=== PATIENT | male | born 1975 | race Caucasian/White ===

== ENCOUNTER 2019-03-04 09:55 | Emergency (ER) | payer SELFPAY ==
[2019-03-04 10:01] VITALS: BP 131/74; PULSE 70; RESP 14; TEMP 36.6; O2SAT 98
--- NOTE | 2019-03-04 10:04 | DI.RAD.S_ITS ---
PROCEDURE: XR CHEST 1V INDICATIONS: chest pain TECHNIQUE: One view of the chest was acquired. COMPARISON: [facility], CHEST 2 VIEW, 02/16/2009, 15:28. [facility], CHEST 1 VIEW, 10/04/2010, 14:10. FINDINGS: Surgical changes and devices: None. Lungs and pleura: Lungs are clear. No pleural effusions or pneumothorax. Mediastinum: Mediastinal contours appear normal. Heart size is normal. Bones and chest wall: No suspicious bony lesions. Overlying soft tissues appear unremarkable. IMPRESSION: Portable chest within normal limits. Dictated by: Dada Felder M.D. on 03/04/2019 at 9:51 Approved by: Dada Felder M.D. on 03/04/2019 at 9:51
--- NOTE | 2019-03-04 10:22 | PC.NURSE ---
Addendum entered by Jelani Prado R.N. 03/04/19 10:24: States is here to start ball rolling for seeing a tankroom tender for the event he had in January. [facility] insurance worries Original Note: Pt refuses IV start and would like lab draw instead of IV as not having chest pain at this time
[2019-03-04] MEDS: ASPIRIN 81 MG CHEW TAB 324 MG PO (10:28)
[2019-03-04 10:30] VITALS: BP 106/63; PULSE 64; RESP 12; O2SAT 99
[2019-03-04 10:43] LABS: Add Manual Diff / Slide Review NO; Basophils Absolute Auto 0 /uL (0-100); Basophils Percent Auto 0.4 % (0-2); Eosinophils Absolute Auto 100 /uL (0-450); Hematocrit 48.7 % (41-53); Hemoglobin 17.2 g/dL (13.5-17.5); Lymphocytes Absolute Auto 1900 /uL (1100-4500); Lymphocytes Percent Auto 27.4 % (25-40); Mean Corpuscular HGB Conc 35.4 % (30-36); Mean Corpuscular Hemoglobin 32.5 PG (26-34); Mean Corpuscular Volume 91.8 fL (80-100); Monocytes Absolute Auto 400 /uL (0-900); Monocytes Percent Auto 5.9 % (3-14); Neutrophils Absolute Auto 4500 /uL (1500-7000); Neutrophils Percent Auto 65.3 % (50-75); Platelet Count 179 X10^3/uL (150-400); Red Cell Distribution Width 13.6 % (11.6-14.8); White Blood Cell Count 6.9 X10^3/uL (4.5-11.0)
[2019-03-04 10:50] LABS: INR 0.9 (0.9-1.3); Prothrombin Time 10.7 SECONDS (10.1-12.7)
--- NOTE | 2019-03-04 10:51 | ED.CHESTPAIN ---
HPI - Chest Pain General Chief Complaint: Chest Pain Stated Complaint: heart attack last month Time Seen by Provider: 03/04/19 10:50 Source: patient Mode of arrival: ambulatory Limitations: no limitations History of Present Illness HPI narrative: 44-year-old male comes emergency department with complaint of an episode of chest pain that happened twice in January. Patient states the 1st 1 was pretty mild a couple days later had a more intense feeling that felt like he was being kicked in the chest, and then felt like a snake was wrapped around his chest and felt very tight. He states that episode was much more intense than sort of took him down to his knees he states that intensity clements last about 6 or 7 minutes but took about 30 minutes to totally resolved. He did feel sweaty in both episodes, he did appreciate any shortness of breath. No nausea no vomiting. Patient states that he has not had any more symptoms since. Both times he was Um active the 1st time he was on a ladder helping with moving and cleaning a house. Patient does smoke, he drinks alcohol but states not regularly but he does binge drink and will drink to excess every couple weeks to months. Denies any illicit. He states he does have diabetes. He used to be taking metformin that he obtain from another person and was helping to control his sugars but he stopped secondary to side effects. He has been told that his cholesterol is high. States he has a strong family history with his mom having heart issues in her 40s as well as uncles who had heart attacks in their 20s and older and a grandfather. Patient was seen in 1 of primary care office is yesterday. They wanted to refer to cardiology or told to come to the emergency department and they felt that he needed stress testing. He has not had any further symptoms since then. Related Data Home Medications Medication Instructions Recorded Confirmed Fish Oil 3,000 - 4,000 unit PO DAILY 03/04/19 03/04/19 aspirin 325 mg PO BID 03/04/19 03/04/19 Previous Rx's Medication Instructions Recorded metformin 250 mg PO BID #30 tab 03/04/19 Allergies Allergy/AdvReac Type Severity Reaction Status Date / Time No Known Drug Allergies Allergy Verified 03/04/19 10:04 Review of Systems Review of Systems ROS Unobtainable: All systems reviewed & are unremarkable except as noted in HPI and below Cardiovascular Reports chest pain, Reports chest pain with activity, Reports diaphoresis, Denies syncope, Denies rapid heart rate, Denies edema, Denies irregular heart rhythm, Denies lightheadedness, Denies palpitations, Denies dyspnea, Denies dyspnea on exertion and Denies orthopnea Respiratory Denies change in phlegm color, Denies chest congestion, Denies cough, Denies hemoptysis, Denies dyspnea, Denies dyspnea on exertion and Denies wheezing Gastrointestinal Gastrointestinal: Denies abdominal pain, Denies change in bowel habits, Denies diarrhea, Denies nausea and Denies vomiting Genitourinary Denies hematuria, Denies dysuria, Denies flank pain and Denies urinary urgency Musculoskeletal Denies back pain Neurologic Denies syncope Endocrine Denies palpitations Allergic/Immunologic Denies wheezing [facility] Medical History (Updated 03/04/19 @ 12:02 by Jazmin Mancia DO) Diabetes (Chronic) Dyslipidemia (Chronic) Social History Smoking Status: Current every day smoker Social History (Updated 03/04/19 @ 11:10 by Jazmin Mancia DO) Smoking Status: Current every day smoker alcohol intake: current substance use type: does not use Exam Narrative Exam Narrative: GENERAL: Alert and oriented x three, moderately obese male in no acute distress. HEENT: Head normocephalic, atraumatic, EOMI, pupils reactive, face symmetric, moist mucous membranes NECK: Supple, full range of motion CARDIOVASCULAR: Regular rate and rhythm without murmurs, rubs or gallops. RESPIRATORY: Breath sounds equal bilaterally, no wheezes rales or rhonchi. ABDOMEN: Soft, nontender. Normoactive bowel sounds all 4 quadrants. No guarding or rebound, rigidity, no mass, no bruit or pulsatile mass. : No CVA tenderness EXTREMITIES: Normal range of motion, no clubbing or edema. Neurovascularly intact. . NEUROLOGICAL: Cranial nerves II through XII grossly intact. Moving all extremities SKIN: Warm, dry, no petechiae, no rashes or lesions. Initial Vital Signs Initial Vital Signs: Vital Signs Temperature 97.8 F 03/04/19 10:01 Pulse Rate 70 03/04/19 10:01 Respiratory Rate 14 03/04/19 10:01 Blood Pressure 131/74 03/04/19 10:01 Pulse Oximetry 98 03/04/19 10:01 Scores HEART Score Heart Score history: Highly Suspicious Heart Score EKG: Normal Heart Score Age: 45-64 years old Heart Score risk factors: > 3 risk factors or hx of atherosclerotic disease Heart Score troponin: < or = to normal limit Heart Score Total: 5 Course Orders Ordered: ED Orders 03/04/19 10:04 XR chest 1V Stat BNP [B Type Natriuretic Peptide] Stat Complete Blood Count AUTO DIFF Stat EKG-12 Lead Stat 03/04/19 10:35 Comprehensive Metabolic Panel Stat Lipase Stat Magnesium Stat Partial Thromboplastin Time Stat Prothrombin Time INR Stat Troponin & CK Cardiac Panel Stat Discontinued Medications Aspirin (Aspirin Chew) 324 mg PO NOW ONE Stop: 03/04/19 10:05 Last Admin: 03/04/19 10:28 Dose: 324 mg Vital Signs - 8 hr 03/04/19 10:01 03/04/19 10:30 03/04/19 12:07 Temperature 97.8 F Pulse Rate 70 64 57 L Respiratory Rate 14 12 16 Blood Pressure 131/74 Blood Pressure [Right Arm] 106/63 105/69 Pulse Oximetry 98 99 97 03/04/19 12:31 Temperature Pulse Rate 58 L Respiratory Rate 13 Blood Pressure 105/69 Blood Pressure [Right Arm] Pulse Oximetry 98 MDM - Chest Pain Lab Data Attestation: I reviewed the patient's lab results. Result diagrams: 03/04/19 10:04 03/04/19 10:35 Lab Results 03/04/19 03/04/19 03/04/19 Range/Units 10:04 10:35 10:35 WBC 6.9 (4.5-11.0) X10^3/uL RBC 5.30 (4.5-5.9) X10^6/uL Hgb 17.2 (13.5-17.5) g/dL Hct 48.7 (41-53) % MCV 91.8 (80-100) fL MCH 32.5 (26-34) PG MCHC 35.4 (30-36) % RDW 13.6 (11.6-14.8) % Plt Count 179 (150-400) X10^3/uL Neut % (Auto) 65.3 (50-75) % Lymph % (Auto) 27.4 (25-40) % [place] % (Auto) 5.9 (3-14) % Eos % (Auto) 1.0 L (2-4) % Baso % (Auto) 0.4 (0-2) % Neut # (Auto) 4500 (0214-4878) /uL Lymph # (Auto) 1900 (7591-9763) /uL [place] # (Auto) 400 (0-900) /uL Eos # (Auto) 100 (0-450) /uL Baso # (Auto) 0 (0-100) /uL PT 10.7 (10.1-12.7) SECONDS INR 0.9 (0.9-1.3) APTT 32 (26.4-36.2) SECONDS Sodium 138 (137-145) mmol/L Potassium 4.5 (3.4-5.1) mmol/L Chloride 104 (98-107) mmol/L Carbon Dioxide 24 (22-32) mmol/L BUN 15 (9-20) mg/dL Creatinine 0.70 (0.66-1.25) mg/dL Estimated GFR > 60.0 (>60) mL/min BUN/Creatinine Ratio 21.4 (6-22) Glucose 176 H (70-100) mg/dL Calcium 9.5 (8.4-10.2) mg/dL Magnesium 1.7 (1.6-2.3) mg/dL Total Bilirubin 0.6 (0.2-1.3) mg/dL AST 19 (17-59) IU/L ALT 32 (21-72) IU/L Alkaline Phosphatase 65 (38-126) U/L Total Creatine Kinase 50 L (55-170) U/L CK-MB (CK-2) TNP CK-MB (CK-2) Rel Index TNP Troponin I < 0.012 (0.01-0.034) ng/mL B-Natriuretic Peptide < 100 (<100) Total Protein 7.1 (6.3-8.2) g/dL Albumin 4.1 (3.5-5.0) g/dL Globulin 3.0 (1.7-4.1) g/dL Albumin/Globulin Ratio 1.4 (1.0-2.8) Lipase 93 (23-300) U/L Imaging Data Chest x-ray: Radiologist's impression: [address] [address] XRay Report Signed Patient: Michi HernandezMagi#: [id number] : 1975Acct:[id number] Age/Sex: 44 / MDate of Service: 03/04/19 Loc: ED Accession Number: [id number] Procedure: XR chest 1V Ordering Provider: Jazmin Mancia D.O. PROCEDURE: XR CHEST 1V INDICATIONS: chest pain TECHNIQUE: One view of the chest was acquired. COMPARISON: [facility], , CHEST 2 VIEW, 02/16/2009, 15:28. [facility], CHEST 1 VIEW, 10/04/2010, 14:10. FINDINGS: Surgical changes and devices: None. Lungs and pleura: Lungs are clear. No pleural effusions or pneumothorax. Mediastinum: Mediastinal contours appear normal. Heart size is normal. Bones and chest wall: No suspicious bony lesions. Overlying soft tissues appear unremarkable. IMPRESSION: Portable chest within normal limits. Dictated by: Dada Felder M.D. on 03/04/2019 at 9:51 Approved by: Dada Felder M.D. on 03/04/2019 at 9:51 ECG Data Attestation: I personally reviewed and interpreted this ECG as follows: Interpretation: Sinus rhythm rate of 65 [place] 160 QRS 89 QTC 383. Normal EKG. MDM Narrative Medical decision making narrative: Patient's EKG does not show any acute changes his last episode of symptoms was month ago. He does have risk factors and has concerning story for angina and would likely benefit from stress testing. He is currently not insured and getting outpatient follow-up would be quite difficult. I spoke with Cardiology and Dr. Davis who had already been consulted by the primary care team and they are willing to see patient for evaluation and stress testing. Discussed with patient I would be willing to keep for stress testing, he does not wish to stay. He has not had symptoms for 1 month and feel it is appropriate for outpatient follow up. He does have risk factors and recommended daily aspirin, statin as well as treatment of his diabetes. I spoke with Dr. Malone which feels this would be helpful. Patient knows that smoking cessation is in his best interest and was counseled. Patient has left over lipitor at home. I spoke with Alysia Bear to faciliate follow up also if there are any barriers to seeing cardiology. She would also be willing to order stress testing and follow the patient. She recommends trying metformin 250mg BID as he did not tolerate 500mg BID prior. Dr. Davis had recommended Beta Max but patient is bradycardic in 50-60's range with systolic BP in 100 range and I would not start at this time. Patient has started taking 324 mg aspirin twice daily told he could take it once daily. He started taking fish oil. He is currently not taking any medications for his cholesterol or diabetes. Patient is at bedside, he has also been contacted by patient care to help him get insurance. Discharge Plan Departure Patient Disposition: Home Clinical Impression: Chest pain Discharge Date/Time: 03/04/19 12:32 Interventions: ED Discharge Assessment Last Done: 03/04/19 12:31 Instructions: DI for Chest Pain Activity Restrictions/Additional Instructions: Follow-up with cardiology in the next week for stress testing call for an appointment. I did speak with Dr. Malone and he recommends that you have stress testing. Contact information is inluded below. You may also discuss with the primary care team and they can also order stress testing. Take aspirin 324mg once daily. Take lipitor 40mg once daily, take at night before bed. Start metformin 250mg or 1/2 tablet twice daily and see if you tolerate that better. Return to the emergency department for recurrent symptoms, new chest pain, shortness of breath, diaphoresis or sweating, persistent nausea or vomiting new weakness, passing out, swelling your extremities or other new or concerning symptoms. Prescriptions: New metformin 500 mg tablet 250 mg PO BID Qty: 30 RF: 0 No Action aspirin 325 mg Tablet 325 mg PO BID RF: 0 Fish Oil 3,000 - 4,000 unit PO DAILY RF: 0 Referrals: Alysia Bear ARNP [Non-Staff] - Boogie Malone MD [Physician] -
[2019-03-04 10:52] LABS: PTT Partial Thromboplastin Tim 32 SECONDS (26.4-36.2)
[2019-03-04 10:55] LABS: HEMOLYSIS < 15 (0-50); Potassium 4.5 mmol/L (3.4-5.1)
--- NOTE | 2019-03-04 10:55 | PC.NURSE ---
Pt concerned because he has no insurance. Called Financial / Pt accounts and spoke w/ Lauren. She will be down to see pt.
[2019-03-04 10:58] LABS: Alanine Aminotransferase 32 IU/L (21-72); Albumin 4.1 g/dL (3.5-5.0); Albumin Globulin Ratio 1.4 (1.0-2.8); Alkaline Phosphatase 65 U/L (38-126); Aspartate Aminotransferase 19 IU/L (17-59); BUN Creatinine Ratio 21.4 (6-22); Bilirubin Total 0.6 mg/dL (0.2-1.3); Blood Urea Nitrogen 15 mg/dL (9-20); Calcium 9.5 mg/dL (8.4-10.2); Carbon Dioxide 24 mmol/L (22-32); Chloride 104 mmol/L (98-107); Creatine Kinase 50 U/L (55-170); Estimated Glomerular Filt Rate > 60.0 mL/min (>60); Glucose 176 mg/dL (70-100); Lipase 93 U/L (23-300); Magnesium 1.7 mg/dL (1.6-2.3); Sodium 138 mmol/L (137-145); Total Protein 7.1 g/dL (6.3-8.2)
[2019-03-04 11:10] LABS: Troponin I < 0.012 ng/mL (0.01-0.034)
--- NOTE | 2019-03-04 11:13 | ED_ITS ---
HPI - Chest Pain General Chief Complaint: Chest Pain Stated Complaint: heart attack last month Time Seen by Provider: 03/04/19 10:50 Source: patient Mode of arrival: ambulatory Limitations: no limitations History of Present Illness HPI narrative: 44-year-old male comes emergency department with complaint of an episode of chest pain that happened twice in January. Patient states the 1st 1 was pretty mild a couple days later had a more intense feeling that felt like he was being kicked in the chest, and then felt like a snake was wrapped around his chest and felt very tight. He states that episode was much more intense than sort of took him down to his knees he states that intensity clements last about 6 or 7 minutes but took about 30 minutes to totally resolved. He did feel sweaty in both episodes, he did appreciate any shortness of breath. No nausea no vomiting. Patient states that he has not had any more symptoms since. Both times he was Um active the 1st time he was on a ladder helping with moving and cleaning a house. Patient does smoke, he drinks alcohol but states not regularly but he does binge drink and will drink to excess every couple weeks to months. Denies any illicit. He states he does have diabetes. He used to be taking metformin that he obtain from another person and was helping to control his sugars but he stopped secondary to side effects. He has been told that his cholesterol is high. States he has a strong family history with his mom having heart issues in her 40s as well as uncles who had heart attacks in their 20s and older and a grandfather. Patient was seen in 1 of primary care office is yesterday. They wanted to refer to cardiology or told to come to the emergency department and they felt that he needed stress testing. He has not had any further symptoms since then. Related Data Home Medications Medication Instructions Recorded Confirmed Fish Oil 3,000 - 4,000 unit PO DAILY 03/04/19 03/04/19 aspirin 325 mg PO BID 03/04/19 03/04/19 Previous Rx's Medication Instructions Recorded metformin 250 mg PO BID #30 tab 03/04/19 Allergies Allergy/AdvReac Type Severity Reaction Status Date / Time No Known Drug Allergies Allergy Verified 03/04/19 10:04 Review of Systems Review of Systems ROS Unobtainable: All systems reviewed & are unremarkable except as noted in HPI and below Cardiovascular Reports chest pain, Reports chest pain with activity, Reports diaphoresis, Denies syncope, Denies rapid heart rate, Denies edema, Denies irregular heart rhythm, Denies lightheadedness, Denies palpitations, Denies dyspnea, Denies dyspnea on exertion and Denies orthopnea Respiratory Denies change in phlegm color, Denies chest congestion, Denies cough, Denies hemoptysis, Denies dyspnea, Denies dyspnea on exertion and Denies wheezing Gastrointestinal Gastrointestinal: Denies abdominal pain, Denies change in bowel habits, Denies diarrhea, Denies nausea and Denies vomiting Genitourinary Denies hematuria, Denies dysuria, Denies flank pain and Denies urinary urgency Musculoskeletal Denies back pain Neurologic Denies syncope Endocrine Denies palpitations Allergic/Immunologic Denies wheezing [facility] Medical History (Updated 03/04/19 @ 12:02 by Jazmin Mancia DO) Diabetes (Chronic) Dyslipidemia (Chronic) Social History Smoking Status: Current every day smoker Social History (Updated 03/04/19 @ 11:10 by Jazmin Mancia DO) Smoking Status: Current every day smoker alcohol intake: current substance use type: does not use Exam Narrative Exam Narrative: GENERAL: Alert and oriented x three, moderately obese male in no acute distress. HEENT: Head normocephalic, atraumatic, EOMI, pupils reactive, face symmetric, moist mucous membranes NECK: Supple, full range of motion CARDIOVASCULAR: Regular rate and rhythm without murmurs, rubs or gallops. RESPIRATORY: Breath sounds equal bilaterally, no wheezes rales or rhonchi. ABDOMEN: Soft, nontender. Normoactive bowel sounds all 4 quadrants. No guarding or rebound, rigidity, no mass, no bruit or pulsatile mass. : No CVA tenderness EXTREMITIES: Normal range of motion, no clubbing or edema. Neurovascularly intact. . NEUROLOGICAL: Cranial nerves II through XII grossly intact. Moving all extremities SKIN: Warm, dry, no petechiae, no rashes or lesions. Initial Vital Signs Initial Vital Signs: Vital Signs Temperature 97.8 F 03/04/19 10:01 Pulse Rate 70 03/04/19 10:01 Respiratory Rate 14 03/04/19 10:01 Blood Pressure 131/74 03/04/19 10:01 Pulse Oximetry 98 03/04/19 10:01 Scores HEART Score Heart Score history: Highly Suspicious Heart Score EKG: Normal Heart Score Age: 45-64 years old Heart Score risk factors: > 3 risk factors or hx of atherosclerotic disease Heart Score troponin: < or = to normal limit Heart Score Total: 5 Course Orders Ordered: ED Orders 03/04/19 10:04 XR chest 1V Stat BNP [B Type Natriuretic Peptide] Stat Complete Blood Count AUTO DIFF Stat EKG-12 Lead Stat 03/04/19 10:35 Comprehensive Metabolic Panel Stat Lipase Stat Magnesium Stat Partial Thromboplastin Time Stat Prothrombin Time INR Stat Troponin & CK Cardiac Panel Stat Discontinued Medications Aspirin (Aspirin Chew) 324 mg PO NOW ONE Stop: 03/04/19 10:05 Last Admin: 03/04/19 10:28 Dose: 324 mg Vital Signs - 8 hr 03/04/19 10:01 03/04/19 10:30 03/04/19 12:07 Temperature 97.8 F Pulse Rate 70 64 57 L Respiratory Rate 14 12 16 Blood Pressure 131/74 Blood Pressure [Right Arm] 106/63 105/69 Pulse Oximetry 98 99 97 03/04/19 12:31 Temperature Pulse Rate 58 L Respiratory Rate 13 Blood Pressure 105/69 Blood Pressure [Right Arm] Pulse Oximetry 98 MDM - Chest Pain Lab Data Attestation: I reviewed the patient's lab results. Result diagrams: 03/04/19 10:04 03/04/19 10:35 Lab Results 03/04/19 03/04/19 03/04/19 Range/Units 10:04 10:35 10:35 WBC 6.9 (4.5-11.0) X10^3/uL RBC 5.30 (4.5-5.9) X10^6/uL Hgb 17.2 (13.5-17.5) g/dL Hct 48.7 (41-53) % MCV 91.8 (80-100) fL MCH 32.5 (26-34) PG MCHC 35.4 (30-36) % RDW 13.6 (11.6-14.8) % Plt Count 179 (150-400) X10^3/uL Neut % (Auto) 65.3 (50-75) % Lymph % (Auto) 27.4 (25-40) % [place] % (Auto) 5.9 (3-14) % Eos % (Auto) 1.0 L (2-4) % Baso % (Auto) 0.4 (0-2) % Neut # (Auto) 4500 (1811-3019) /uL Lymph # (Auto) 1900 (6232-6219) /uL [place] # (Auto) 400 (0-900) /uL Eos # (Auto) 100 (0-450) /uL Baso # (Auto) 0 (0-100) /uL PT 10.7 (10.1-12.7) SECONDS INR 0.9 (0.9-1.3) APTT 32 (26.4-36.2) SECONDS Sodium 138 (137-145) mmol/L Potassium 4.5 (3.4-5.1) mmol/L Chloride 104 (98-107) mmol/L Carbon Dioxide 24 (22-32) mmol/L BUN 15 (9-20) mg/dL Creatinine 0.70 (0.66-1.25) mg/dL Estimated GFR > 60.0 (>60) mL/min BUN/Creatinine Ratio 21.4 (6-22) Glucose 176 H (70-100) mg/dL Calcium 9.5 (8.4-10.2) mg/dL Magnesium 1.7 (1.6-2.3) mg/dL Total Bilirubin 0.6 (0.2-1.3) mg/dL AST 19 (17-59) IU/L ALT 32 (21-72) IU/L Alkaline Phosphatase 65 (38-126) U/L Total Creatine Kinase 50 L (55-170) U/L CK-MB (CK-2) TNP CK-MB (CK-2) Rel Index TNP Troponin I < 0.012 (0.01-0.034) ng/mL B-Natriuretic Peptide < 100 (<100) Total Protein 7.1 (6.3-8.2) g/dL Albumin 4.1 (3.5-5.0) g/dL Globulin 3.0 (1.7-4.1) g/dL Albumin/Globulin Ratio 1.4 (1.0-2.8) Lipase 93 (23-300) U/L Imaging Data Chest x-ray: Radiologist's impression: [address] [address] XRay Report Signed Patient: Michi HernandezMagi#: [id number] : 1975Acct:[id number] Age/Sex: 44 / MDate of Service: 03/04/19 Loc: ED Accession Number: [id number] Procedure: XR chest 1V Ordering Provider: Jazmin Mancia D.O. PROCEDURE: XR CHEST 1V INDICATIONS: chest pain TECHNIQUE: One view of the chest was acquired. COMPARISON: [facility], , CHEST 2 VIEW, 02/16/2009, 15:28. [facility], CHEST 1 VIEW, 10/04/2010, 14:10. FINDINGS: Surgical changes and devices: None. Lungs and pleura: Lungs are clear. No pleural effusions or pneumothorax. Mediastinum: Mediastinal contours appear normal. Heart size is normal. Bones and chest wall: No suspicious bony lesions. Overlying soft tissues appear unremarkable. IMPRESSION: Portable chest within normal limits. Dictated by: Dada Felder M.D. on 03/04/2019 at 9:51 Approved by: Dada Felder M.D. on 03/04/2019 at 9:51 ECG Data Attestation: I personally reviewed and interpreted this ECG as follows: Interpretation: Sinus rhythm rate of 65 [place] 160 QRS 89 QTC 383. Normal EKG. MDM Narrative Medical decision making narrative: Patient's EKG does not show any acute changes his last episode of symptoms was month ago. He does have risk factors and has concerning story for angina and would likely benefit from stress testing. He is currently not insured and getting outpatient follow-up would be quite difficult. I spoke with Cardiology and Dr. Davis who had already been consulted by the primary care team and they are willing to see patient for evaluation and stress testing. Discussed with patient I would be willing to keep for stress testing, he does not wish to stay. He has not had symptoms for 1 month and feel it is appropriate for outpatient follow up. He does have risk factors and recommended daily aspirin, statin as well as treatment of his diabetes. I spoke with Dr. Malone which feels this would be helpful. Patient knows that smoking cessation is in his best interest and was counseled. Patient has left over lipitor at home. I spoke with Alysia Bear to faciliate follow up also if there are any barriers to seeing cardiology. She would also be willing to order stress testing and follow the patient. She recommends trying metformin 250mg BID as he did not tolerate 500mg BID prior. Dr. Davis had recommended Beta Max but patient is bradycardic in 50-60's range with systolic BP in 100 range and I would not start at this time. Patient has started taking 324 mg aspirin twice daily told he could take it once daily. He started taking fish oil. He is currently not taking any medications for his cholesterol or diabetes. Patient is at bedside, he has also been contacted by patient care to help him get insurance. Discharge Plan Departure Patient Disposition: Home Clinical Impression: Chest pain Discharge Date/Time: 03/04/19 12:32 Interventions: ED Discharge Assessment Last Done: 03/04/19 12:31 Instructions: DI for Chest Pain Activity Restrictions/Additional Instructions: Follow-up with cardiology in the next week for stress testing call for an lion ointment. I did speak with Dr. Malone and he recommends that you have stress testing. Contact information is inluded below. You may also discuss with the primary care team and they can also order stress testing. Take aspirin 324mg once daily. Take lipitor 40mg once daily, take at night before bed. Start metformin 250mg or 1/2 tablet twice daily and see if you tolerate that better. Return to the emergency department for recurrent symptoms, new chest pain, shortness of breath, diaphoresis or sweating, persistent nausea or vomiting new weakness, passing out, swelling your extremities or other new or concerning symptoms. Prescriptions: New metformin 500 mg tablet 250 mg PO BID Qty: 30 RF: 0 No Action aspirin 325 mg Tablet 325 mg PO BID RF: 0 Fish Oil 3,000 - 4,000 unit PO DAILY RF: 0 Referrals: Alysia Bear ARNP [Non-Staff] - Boogie Malone MD [Physician] -
[2019-03-04 11:15] LABS: B Type Natriuretic Peptide < 100 (<100)
[2019-03-04 12:07] VITALS: BP 105/69; PULSE 57; RESP 16; O2SAT 97
[2019-03-04 12:31] VITALS: BP 105/69; PULSE 58; RESP 13; O2SAT 98
== END 2019-03-04 12:32 | disposition home or self-care (01) ==
PROVIDERS: Emergency Provider Emergency Medicine
DX: R07.9 Chest pain, unspecified (principal)
CPT/HCPCS: 36415; 71045; 80053; 82550; 83690; 83735; 83880; 84484; 85025; 85610; 85730; 93005; 99283

== ENCOUNTER → 2022-05-05 09:52 | Outpatient (CLI) | payer OTHER, MEDICAID, SELFPAY ==
[2022-05-05 10:45] LABS: Add Manual Diff / Slide Review NO; Basophils Absolute Auto 0 /uL (0-100); Basophils Percent Auto 0.4 % (0-2); Eosinophils Absolute Auto 100 /uL (0-450); Eosinophils Percent Auto 0.7 % (2-4); Hematocrit 48.6 % (41-53); Hemoglobin 17.1 g/dL (13.5-17.5); Lymphocytes Absolute Auto 1900 /uL (1100-4500); Lymphocytes Percent Auto 25.5 % (25-40); Mean Corpuscular HGB Conc 35.2 % (30-36); Mean Corpuscular Hemoglobin 32.6 PG (26-34); Mean Corpuscular Volume 92.7 fL (80-100); Monocytes Absolute Auto 500 /uL (0-900); Neutrophils Absolute Auto 5100 /uL (1500-7000); Neutrophils Percent Auto 67.4 % (50-75); Platelet Count 218 X10^3/uL (150-400); Red Blood Cell Count 5.24 X10^6/uL (4.5-5.9); Red Cell Distribution Width 13.2 % (11.6-14.8); White Blood Cell Count 7.6 X10^3/uL (4.5-11.0)
[2022-05-05 11:08] LABS: Alanine Aminotransferase 28 IU/L (<50); Albumin 4.4 g/dL (3.5-5.0); Albumin Globulin Ratio 1.3 (1.0-2.8); Alkaline Phosphatase 68 U/L (38-126); Aspartate Aminotransferase 19 IU/L (17-59); BUN Creatinine Ratio 16.3 (6-22); Bilirubin Total 0.6 mg/dL (0.2-1.3); Blood Urea Nitrogen 15 mg/dL (9-20); Calcium 9.4 mg/dL (8.4-10.2); Carbon Dioxide 28 mmol/L (22-32); Chloride 101 mmol/L (98-107); Cholesterol 268 mg/dL (140-199); Estimated Glomerular Filt Rate > 60 mL/min (>60); Globulin 3.4 g/dL (1.7-4.1); Glucose 199 mg/dL (70-100); HDL Cholesterol 33 mg/dL (40-60); HEMOLYSIS < 15 (0-50); Potassium 4.9 mmol/L (3.4-5.1); Sodium 140 mmol/L (137-145); Total Protein 7.8 g/dL (6.3-8.2); Triglycerides 501 mg/dL (35-150)
[2022-05-05 11:37] LABS: TSH w/ Reflex to FT4 1.35 uIU/mL (0.47-4.68)
== END ==
PROVIDERS: PCP Family Medicine; Referring Provider Family Medicine; Visit Provider Family Medicine
DX: E11.9 Type 2 diabetes mellitus without complications (principal); E78.5 Hyperlipidemia, unspecified; F17.200 Nicotine dependence, unspecified, uncomplicated; F32.A Depression, unspecified; K21.9 Gastro-esophageal reflux disease without esophagitis; Z78.9 Other specified health status
CPT/HCPCS: 36415; 80053; 80061; 83036; 84443; 85025

== ENCOUNTER → 2022-08-29 14:20 | Outpatient (CLI) | payer OTHER, MEDICAID, SELFPAY ==
[2022-08-29 14:48] LABS: Hemoglobin A1C% w Est Avg Glu 8.8 % (4.0-6.0)
== END ==
PROVIDERS: PCP Family Medicine; Referring Provider Family Medicine; Visit Provider Family Medicine
DX: E11.9 Type 2 diabetes mellitus without complications (principal)
CPT/HCPCS: 36415; 83036

== ENCOUNTER → 2024-11-02 08:01 | Outpatient (CLI) | payer BC, SELFPAY ==
[2024-11-02 08:50] LABS: Hematocrit 47.4 % (41-53); Hemoglobin 16.6 g/dL (13.5-17.5); Mean Corpuscular Hemoglobin 32.8 PG (26-34); Mean Corpuscular Volume 93.9 fL (80-100); Platelet Count 159 X10^3/uL (150-400); Red Blood Cell Count 5.05 X10^6/uL (4.5-5.9); Red Cell Distribution Width 13.7 % (11.6-14.8); White Blood Cell Count 6.5 X10^3/uL (4.5-11.0)
[2024-11-02 09:01] LABS: Hemoglobin A1C% w Est Avg Glu 8.3 % (4.0-6.0)
[2024-11-02 09:09] LABS: Alanine Aminotransferase 33 IU/L (<50); Albumin 4.3 g/dL (3.5-5.0); Albumin Globulin Ratio 1.9 (1.0-2.8); Alkaline Phosphatase 51 U/L (38-126); Aspartate Aminotransferase 25 IU/L (17-59); BUN Creatinine Ratio 19.2 (6-22); Bilirubin Total 0.7 mg/dL (0.2-1.3); Blood Urea Nitrogen 14 mg/dL (9-20); Calcium 9.2 mg/dL (8.4-10.2); Carbon Dioxide 25 mmol/L (22-32); Chloride 101 mmol/L (98-107); Cholesterol 241 mg/dL (140-199); Estimated Glomerular Filt Rate > 60 mL/min (>60); Globulin 2.3 g/dL (1.7-4.1); Glucose 297 mg/dL (70-99); HDL Cholesterol 26 mg/dL (40-60); HEMOLYSIS < 15 (0-50); Potassium 4.8 mmol/L (3.4-5.1); Sodium 135 mmol/L (137-145); Total Protein 6.6 g/dL (6.3-8.2)
[2024-11-02 09:23] LABS: Triglycerides 690 mg/dL (35-150)
[2024-11-02 11:00] LABS: HIV 1 & 2 Ab/Ag 4th Gen Combo NEGATIVE (NEGATIVE); Hep C Virus Ab w/Reflex Quant NEGATIVE s/c (NEGATIVE)
== END ==
PROVIDERS: PCP Family Medicine; Referring Provider Family Medicine; Visit Provider Family Medicine
DX: E11.9 Type 2 diabetes mellitus without complications (principal); E78.5 Hyperlipidemia, unspecified; F17.200 Nicotine dependence, unspecified, uncomplicated; Z12.5 Encounter for screening for malignant neoplasm of prostate
CPT/HCPCS: 36415; 80053; 80061; 83036; 85027; 86803; 87389; G0103

== ENCOUNTER → 2025-03-24 11:10 | Outpatient (CLI) | payer BC, SELFPAY ==
[2025-03-24 12:50] LABS: Hemoglobin A1C% w Est Avg Glu 7.2 % (4.0-6.0)
[2025-03-24 12:54] LABS: Blood Urea Nitrogen 11 mg/dL (9-20); Calcium 9.2 mg/dL (8.4-10.2); Carbon Dioxide 25 mmol/L (22-32); Chloride 105 mmol/L (98-107); Cholesterol 236 mg/dL (140-199); Estimated Glomerular Filt Rate > 60 mL/min (>60); Glucose 74 mg/dL (70-99); HDL Cholesterol 29 mg/dL (40-60); HEMOLYSIS 20 (0-50); Potassium 4.4 mmol/L (3.4-5.1); Sodium 139 mmol/L (137-145)
[2025-03-24 13:03] LABS: Triglycerides 781 mg/dL (35-150)
== END ==
PROVIDERS: PCP Family Medicine; Referring Provider Family Medicine; Visit Provider Family Medicine
DX: E11.65 Type 2 diabetes mellitus with hyperglycemia (principal); F17.200 Nicotine dependence, unspecified, uncomplicated; F17.210 Nicotine dependence, cigarettes, uncomplicated; E78.49 Other hyperlipidemia; I25.10 Atherosclerotic heart disease of native coronary artery without angina pectoris
CPT/HCPCS: 36415; 80048; 80061; 83036

== ENCOUNTER → 2025-03-26 11:37 | Outpatient (CLI) | payer BC, SELFPAY ==
--- NOTE | 2025-03-26 11:41 | DI.CT.S_ITS ---
PROCEDURE: CT LUNG LOW DOSE SCREENING INDICATIONS: screening TECHNIQUE: Noncontrast 2.0-2.5 mm thick sections acquired from the pulmonary apices to the posterior costophrenic angles. 7 mm thick axial MIP, and 5 mm coronal and sagittal reformats were then acquired. For radiation dose reduction, the following was used: automated exposure control, adjustment of mA and/or kV according to patient size. COMPARISON: None. FINDINGS: Image quality: Diagnostic. Lower Neck: No enlarged lymph nodes. Thyroid: No thyroid nodules which require sonographic follow up, per consensus guidelines. Axillae: No enlarged lymph nodes. Chest Wall: Unremarkable. Bones: Unremarkable. Lungs and Pleura: No pneumothorax or pleural effusions. No significant emphysematous change noted. Scattered small pulmonary nodules, all less than 5 mm. All industrial relations representative nodules are described on series 3 as follows: 4 mm pleural based anterior left lower lobe pulmonary nodule, image 197. 3 mm subpleural pulmonary nodule, right middle lobe, image 124. Other very small nodules are present. 3 mm pleural based pulmonary nodule, posterior right upper lobe, image 64. Heart: Heart size is normal. Mild coronary artery calcifications noted. No pericardial effusion. Thoracic Vessels: The aorta and pulmonary arteries demonstrate normal size. Mediastinum and Rosa: No enlarged lymph nodes. Esophagus: No wall thickening. No hiatal hernia. Upper Abdomen: Visualized upper abdomen solid organs and bowel loops appear normal. IMPRESSION: Multiple small pulmonary nodules, 4 mm or less. LUNG-RADS 2; continued annual screening, if eligible. Clinically Significant Non-pulmonary Findings: None. Dictated by: Guilherme Flor M.D. on 03/26/2025 at 16:59 Approved by: Guilherme Flor M.D. on 03/26/2025 at 17:06
== END ==
PROVIDERS: PCP Family Medicine; Referring Provider Family Medicine; Visit Provider Family Medicine
DX: Z12.2 Encounter for screening for malignant neoplasm of respiratory organs (principal); F17.210 Nicotine dependence, cigarettes, uncomplicated; R91.8 Other nonspecific abnormal finding of lung field; E11.65 Type 2 diabetes mellitus with hyperglycemia; E78.49 Other hyperlipidemia; I25.10 Atherosclerotic heart disease of native coronary artery without angina pectoris
CPT/HCPCS: 71271